=== PATIENT | male | born 1980 | race Caucasian/White ===

== ENCOUNTER 2023-07-27 19:48 | Emergency (ER) | payer SELFPAY ==
[~2023-07-27] VITALS: Ht 182.9 cm; Wt 92.5 kg
[2023-07-27] MEDS ORDERED: ATOR10TA PO (20:02)
[2023-07-27] MEDS ORDERED: LOSA25TA27 PO (20:02)
[2023-07-27] MEDS ORDERED: IBUPROFEN 800 MG TABLET ONE (20:05)
[2023-07-27] MEDS ORDERED: IBUPROFEN 800 MG TABLET PO ONE (20:15)
[2023-07-27] MEDS ORDERED: CYCL10TA9 PO (20:57)
[2023-07-27] MEDS ORDERED: IBUP-1957 PO (20:57)
[2023-07-27 21:11] VITALS: BP 135/77; O2SAT 97
== END 2023-07-27 21:21 | disposition home or self-care (01) ==
LOC: ER 19:48
DX: S13.9XXA Sprain of joints and ligaments of unspecified parts of neck, initial encounter (principal); I10 Essential (primary) hypertension; E78.5 Hyperlipidemia, unspecified; E11.9 Type 2 diabetes mellitus without complications; Z79.1 Long term (current) use of non-steroidal anti-inflammatories (NSAID); Z79.899 Other long term (current) drug therapy; V89.2XXA Person injured in unspecified motor-vehicle accident, traffic, initial encounter; Y93.89 Activity, other specified; Y92.89 Other specified places as the place of occurrence of the external cause; Y99.8 Other external cause status
CPT/HCPCS: A4606; A4663